=== PATIENT | male | born 1980 | race Caucasian/White ===

== ENCOUNTER 2023-04-22 11:41 | Emergency (ER) | payer MEDICAID ==
[~2023-04-22] VITALS: Ht 170.2 cm; Wt 82.0 kg
[2023-04-22 11:45] VITALS: O2SAT 99
[2023-04-22 12:44] LABS: BASOPHILS % 0.3 % (0.0-2.0); EOSINOPHILS % 1.6 % (0.0-5.0); HEMATOCRIT. 38.1 % (42.0-52.0); HEMOGLOBIN. 13.5 g/dL (14.0-18.0); MEAN CORPUSCULAR HEMOGLOBIN 32.3 pg (28.0-32.0); MEAN CORPUSCULAR HGB CONC 35.4 g/dL (31.0-37.0); MEAN CORPUSCULAR VOLUME 91.3 fL (80.0-94.0); MEAN PLATELET VOLUME 7.6 fl (7.4-10.4); MONOCYTES % 8.6 % (2.0-8.0); NEUTROPHILS % 67.5 % (40.0-76.0); PLATELET 345 x1000/uL (130-400); RED BLOOD CELL COUNT 4.17 mill/uL (4.7-6.1); RED CELL DISTRIBUTION WIDTH 12.2 % (11.6-14.6)
[2023-04-22 13:03] LABS: ALANINE AMINOTRANSFERASE 25 IU/L (10-49); ALBUMIN 4.7 g/dL (3.2-4.8); ASPARTATE AMINOTRANSFERASE 20 IU/L (<34); BILIRUBIN TOTAL 0.6 mg/dL (0.1-1.0); CALCIUM 9.3 mg/dL (8.7-10.4); CARBON DIOXIDE 29 mEq/L (21-32); CHLORIDE 106 mEq/L (98-107); CREATININE 0.9 mg/dL (0.6-1.3); GLUCOSE 162 mg/dL (70-105); PROTEIN TOTAL 7.7 g/dL (6.0-8.3); SODIUM 139 mEq/L (136-145); UREA NITROGEN BLOOD 10 mg/dL (9-23)
[2023-04-22] MEDS: ACETAMINOPHEN 325MG TABLET PO STA (13:14)
[2023-04-22] MEDS: SODIUM CHLORIDE 0.9% 1,000 ML IV ONE (13:35)
[2023-04-22 14:18] VITALS: BP 129/87; PULSE 79; RESP 16; TEMP 98.3
== END 2023-04-22 14:36 | disposition home or self-care (01) ==
LOC: ER 12:26
DX: R42 Dizziness and giddiness (principal); R53.1 Weakness; R05.9 Cough, unspecified; E11.9 Type 2 diabetes mellitus without complications; E78.00 Pure hypercholesterolemia, unspecified
CPT/HCPCS: 80053; 85025; 36415; 71045; 93005; 99285; J7030; Z7610

== ENCOUNTER 2023-06-15 10:36 | Emergency (ER) | payer MEDICAID ==
[~2023-06-15] VITALS: Ht 170.2 cm; Wt 93.0 kg
[2023-06-15 10:40] VITALS: BP 139/90; PULSE 84; RESP 18; TEMP 98.8; O2SAT 100
[2023-06-15] MEDS ORDERED: IBUPROFEN 400MG TABLET PO ONE (11:30)
[2023-06-15] MEDS ORDERED: ACETAMINOPHEN 325MG TABLET PO ONE (11:30)
[2023-06-15 11:53] LABS: CHLORIDE 104 mEq/L (98-107); POTASSIUM 3.8 mEq/L (3.5-5.1); SODIUM 135 mEq/L (136-145)
[2023-06-15 11:54] LABS: CARBON DIOXIDE 22 mEq/L (21-32)
[2023-06-15 11:55] LABS: CALCIUM 8.5 mg/dL (8.7-10.4)
[2023-06-15 11:59] LABS: CREATININE 0.9 mg/dL (0.6-1.3); GLUCOSE 181 mg/dL (70-105); UREA NITROGEN BLOOD 8 mg/dL (9-23)
[2023-06-15 12:01] LABS: ALANINE AMINOTRANSFERASE 40 IU/L (10-49); ALBUMIN 4.6 g/dL (3.2-4.8); ASPARTATE AMINOTRANSFERASE 33 IU/L (<34)
[2023-06-15 12:02] LABS: BILIRUBIN TOTAL 0.6 mg/dL (0.1-1.0); PROTEIN TOTAL 7.9 g/dL (6.0-8.3)
[2023-06-15 12:04] LABS: BASOPHILS % 0.7 % (0.0-2.0); EOSINOPHILS % 1.8 % (0.0-5.0); HEMATOCRIT. 42.8 % (42.0-52.0); LYMPHOCYTES % 22.9 % (20.0-50.0); MEAN CORPUSCULAR VOLUME 91.5 fL (80.0-94.0); MEAN PLATELET VOLUME 7.7 fl (7.4-10.4); MONOCYTES % 6.5 % (2.0-8.0); NEUTROPHILS % 68.1 % (40.0-76.0); PLATELET 327 x1000/uL (130-400); RED BLOOD CELL COUNT 4.68 mill/uL (4.7-6.1); RED CELL DISTRIBUTION WIDTH 13.5 % (11.6-14.6); WHITE BLOOD COUNT 6.7 x1000/uL (4.5-11.0)
[2023-06-15] MEDS: IBUPROFEN 400MG TABLET PO NR (14:39)
[2023-06-15] MEDS: ACETAMINOPHEN 325MG TABLET PO NR (14:39)
[2023-06-15] MEDS ORDERED: IBUP-2028 MT (15:21)
[2023-06-15] MEDS ORDERED: MECL-299 MT (15:21)
== END 2023-06-15 15:43 | disposition home or self-care (01) ==
LOC: ER 10:36
DX: R42 Dizziness and giddiness (principal); R51.9 Headache, unspecified; E11.9 Type 2 diabetes mellitus without complications; E78.00 Pure hypercholesterolemia, unspecified
CPT/HCPCS: 36415; 80053; 82962; 85025; 99284

== ENCOUNTER 2024-02-19 08:32 | Emergency (ER) | payer OTHER ==
[~2024-02-19] VITALS: Ht 175.3 cm; Wt 95.2 kg
[~2024-02-19 08:32] MED LIST: IBUP-2028 MT; MECL-299 MT
[2024-02-19 08:40] VITALS: O2SAT 100
[2024-02-19 09:17] LABS: BASOPHILS % 0.5 % (0.0-2.0); EOSINOPHILS % 0.4 % (0.0-5.0); HEMATOCRIT. 43.8 % (42.0-52.0); HEMOGLOBIN. 15.3 g/dL (14.0-18.0); LYMPHOCYTES % 27.3 % (20.0-50.0); MEAN CORPUSCULAR HEMOGLOBIN 32.6 pg (28.0-32.0); MEAN CORPUSCULAR VOLUME 93.2 fL (80.0-94.0); MEAN PLATELET VOLUME 7.3 fl (7.4-10.4); MONOCYTES % 7.1 % (2.0-8.0); NEUTROPHILS % 64.7 % (40.0-76.0); PLATELET 342 x1000/uL (130-400); RED CELL DISTRIBUTION WIDTH 12.5 % (11.6-14.6); WHITE BLOOD COUNT 6.7 x1000/uL (4.5-11.0)
[2024-02-19] MEDS: ACETAMINOPHEN 325MG TABLET PO ONE (09:32)
[2024-02-19] MEDS: FAMOTIDINE 20MG TABLET PO ONE (09:32)
[2024-02-19] MEDS: MAGNESIUM/ALUMINUM HYDROXIDE/SIMETHICONE 30ML UDC PO STA (09:32)
[2024-02-19 09:33] LABS: CLARITY URINE CLEAR (CLEAR); COLOR URINE YELLOW (YELLOW); GLUCOSE URINE TRACE (NEGATIVE); KETONES URINE NEGATIVE (NEGATIVE); LEUKOCYTE ESTERASE URINE NEGATIVE (NEGATIVE); NITRITE URINE NEGATIVE (NEGATIVE); OCCULT BLOOD URINE NEGATIVE (NEGATIVE); PROTEIN URINE NEGATIVE (NEGATIVE); SPECIFIC GRAVITY URINE 1.017 (1.005-1.030); UROBILINOGEN URINE 0.2 E.U./dL (0.2-1.0)
[2024-02-19 09:46] LABS: BACTERIA URINE FEW; RBC URINE 0-2 /hpf (0-2); SQUAMOUS EPITHELIAL CELL URINE FEW /lpf (RARE/1+); WBC URINE 0-2 /hpf (0-2); YEAST URINE NONE SEEN
[2024-02-19] MEDS: ONDANSETRON 4MG ODT PO ONE (09:56)
[2024-02-19 10:06] LABS: CARBON DIOXIDE 25 mEq/L (21-32); CHLORIDE 99 mEq/L (98-107); POTASSIUM 3.9 mEq/L (3.5-5.1); SODIUM 133 mEq/L (136-145)
[2024-02-19 10:07] LABS: CALCIUM 8.7 mg/dL (8.7-10.4)
[2024-02-19 10:12] LABS: GLUCOSE 145 mg/dL (70-105); UREA NITROGEN BLOOD 12 mg/dL (9-23)
[2024-02-19 10:13] LABS: ALANINE AMINOTRANSFERASE 51 IU/L (10-49); ALBUMIN 4.3 g/dL (3.2-4.8); ASPARTATE AMINOTRANSFERASE 46 IU/L (<34)
[2024-02-19 10:14] LABS: BETA HYDROXYBUTYRATE 0.1 mMol/L (0.0-0.3); PHOSPHORUS 4.2 mg/dL (2.5-4.9)
[2024-02-19 10:15] LABS: BILIRUBIN TOTAL 0.6 mg/dL (0.1-1.0)
[2024-02-19 10:22] LABS: BILIRUBIN DIRECT < 0.1 mg/dL (<=3.0); ETHANOL BLOOD < 10 mg/dL (<10); TROPONIN I HIGH SENSITIVITY < 4 ng/L (3.0-53)
[2024-02-19 13:42] VITALS: BP 154/95; PULSE 89; RESP 18; TEMP 37.05852; O2SAT 98
== END 2024-02-19 13:44 | disposition home or self-care (01) ==
LOC: ER 08:48
DX: R51.9 Headache, unspecified (principal); E11.9 Type 2 diabetes mellitus without complications; R10.13 Epigastric pain; H53.8 Other visual disturbances; E78.00 Pure hypercholesterolemia, unspecified; Z20.822 Contact with and (suspected) exposure to COVID-19
CPT/HCPCS: 80076; 80048; 81003; 82010; 80320; 83880; 83690; 83735; 84100; 85025; 84484; 87804 ×2; 36415; 70450; 93005; 99291; 87426; Q0162; G0480